=== PATIENT | female | born 1990 | race American Indian/Alaskan Native ===

== ENCOUNTER 2016-08-03 19:12 | Emergency (ER) | payer OTHER ==
[2016-08-03 19:12] VITALS: BMI 24.0
[2016-08-03 19:44] VITALS: TEMP 98.4; O2SAT 98
[2016-08-03] MEDS ORDERED: Sodium Chloride 0.9% 1,000 ML IV SCH (20:15)
--- NOTE | 2016-08-03 20:29 | ED PDOC ---
Arrival/HPI - General Chief Complaint: Female Genitourinary Time Seen by Provider: 08/03/16 19:58 Historian: Patient - History of Present Illness Narrative History of Present Illness (Text): 08/03/16 20:00 A 26 year old female presents to the emergency department complaining right suprapubic pain that began this afternoon. Patient reports pain was so severe she passed out. She denies any fever, nausea, vomiting, vaginal discharge, urinary symptoms, or other complaints at this time. PMD: Dr. Sandhu Time/Duration: 4-6 hours Symptom Onset: Sudden Symptom Course: Unchanged Quality: Other Severity Level: Severe Activities at Onset: Rest Context: Home Past Medical History - Provider Review Nursing Documentation Reviewed: Yes - Infectious Disease Hx of Infectious Diseases: None - Tetanus Immunization Tetanus Immunization: Unknown - Past Medical History Past Medical History: No Previous - Cardiac Hx Cardiac Disorders: No - Pulmonary Hx Respiratory Disorders: No - Neurological Hx Neurological Disorder: No - HEENT Hx HEENT Disorder: No - Renal Hx Renal Disorder: No - Endocrine/Metabolic Hx Endocrine Disorders: No - Hematological/Oncological Hx Blood Disorders: No - Integumentary Hx Dermatological Disorder: No - Musculoskeletal/Rheumatological Hx Musculoskeletal Disorders: No - Gastrointestinal Hx Gastrointestinal Disorders: No - Genitourinary/Gynecological Hx Genitourinary Disorders: No - Psychiatric Hx Psychophysiologic Disorder: No Hx Substance Use: No - Past Surgical History Past Surgical History: No Previous - Anesthesia Hx Anesthesia: No Hx Anesthesia Reactions: No Hx Malignant Hyperthermia: No - Suicidal Assessment Feels Threatened In Home Enviroment: No Family/Social History - Physician Review Nursing Documentation Reviewed: Yes Family/Social History: Unknown Family HX Smoking Status: Never Smoked Hx Alcohol Use: No Hx Substance Use: No Hx Substance Use Treatment: No Allergies/Home Meds Allergies/Adverse Reactions: Allergies No Known Allergies Allergy (Verified 04/28/15 19:11) Review of Systems - Physician Review All systems were reviewed & negative as marked: Yes - Review of Systems Constitutional: absent: Fevers Respiratory: absent: SOB Cardiovascular: Syncope. absent: Chest Pain Gastrointestinal: Abdominal Pain. absent: Diarrhea, Nausea, Vomiting Genitourinary Female: absent: Dysuria, Hematuria, Urine Output Changes, Vaginal Bleeding, Vaginal Discharge Physical Exam Vital Signs Reviewed: Yes Vital Signs Temp Pulse Resp BP Pulse Ox 08/03/16 19:36 98.4 F 65 18 118/62 98 Temperature: Afebrile Blood Pressure: Normal Pulse: Regular Respiratory Rate: Normal Appearance: Positive for: Well-Appearing, Non-Toxic, Comfortable Pain Distress: None Mental Status: Positive for: Alert and Oriented X 3 - Systems Exam Head: Present: Atraumatic, Normocephalic Pupils: Present: PERRL Extroacular Muscles: Present: EOMI Conjunctiva: Present: Normal Mouth: Present: Moist Mucous Membranes Neck: Present: Normal Range of Motion Respiratory/Chest: Present: Clear to Auscultation, Good Air Exchange. No: Respiratory Distress, Accessory Muscle Use Cardiovascular: Present: Regular Rate and Rhythm, Normal S1, S2. No: Murmurs Abdomen: Present: Normal Bowel Sounds. No: Tenderness, Distention, Peritoneal Signs Back: Present: Normal Inspection Upper Extremity: Present: Normal Inspection. No: Cyanosis, Edema Lower Extremity: Present: Normal Inspection. No: Edema Neurological: Present: GCS=15, CN II-XII Intact, Speech Normal Skin: Present: Warm, Dry, Normal Color. No: Rashes Psychiatric: Present: Alert, Oriented x 3, Normal Insight, Normal Concentration Medical Decision Making ED Course and Treatment: 08/03/16 20:00 Impression: A 26 year old female with right suprapubic pain. Differential Diagnosis include but are not limited to: ovarian cyst Plan: -- Transvaginal Ultrasound -- Labs -- Urinalysis -- Toradol and IV Fluids -- Reassess and disposition Prior Visits: Notes and results from previous visits were reviewed. The patient last presented to the emergency department on 04/28/15 for evaluation of nausea, vomiting, diarrhea and vaginal discharge. Progress Notes: 08/03/16 22:42 EXAM: US Pelvis Complete, Transabdominal FINDINGS: Uterus: Uterus is retroflexed. The uterus measures approximately 9 x 4.6 x 5.5 cm. Endometrium could not be identified Ovaries: Neither ovary could be identified Bladder: Bladder is incompletely distended. IMPRESSION: Limited by body habitus and incomplete bladder distention, retroflexed uterus EXAM: US Pelvis, Transvaginal FINDINGS: Uterus: Endometrium measures approximately 8 mm in width. Accurate measurements of the uterus could not be obtained. There is a 2.2 x 2.1 x 2.4 cm posterior fibroid. Right ovary: Right ovary measures approximately 2.7 x 2.1 x 1.9 cm. There are multiple small follicles. There is expected blood flow on Doppler imaging Left ovary: Left ovary measures approximately 3.1 x 1.6 x 3 cm. There are multiple follicles. There is expected blood flow on Doppler imaging Free fluid: There is no free fluid. Bladder: Bladder is empty IMPRESSION: Uterine fibroid; no torsion; multiple small follicles bilaterally, no cysts Dictated and Authenticated by: Donya Mendoza MD 08/03/16 22:43 On re-evaluation, patient feels better and is in no acute distress. I have discussed the results and plan with the patient, who expresses understanding. Patient in agreement with plan to be discharged home. Patient is stable for discharge. Patient was instructed to follow up with physician or return if symptoms worsen or new concerning symptoms arise. Re-evaluation Time: 22:23 Reassessment Condition: Re-examined, Improved - Lab Interpretations Lab Results: 08/03/16 20:21 08/03/16 20:21 Lab Results 08/03/16 21:59: Urine Color Yellow, Urine Appearance Cloudy, Urine pH 6.0, Ur Specific [place] >= 1.030, Urine Protein 100 H, Urine Glucose (UA) Negative, Urine Ketones Negative, Urine Blood Large H, Urine Nitrate Negative, Urine Bilirubin Negative, Urine Urobilinogen 0.2, Ur Leukocyte Esterase Negative, Urine RBC Pending, Urine WBC Pending 08/03/16 21:24: Urine HCG, Qual Negative 08/03/16 20:21: Sodium 138, Potassium 4.0, Chloride 106, Carbon Dioxide 23, Anion Gap 13, BUN 10, Creatinine 0.8, Est GFR ( Amer) > 60, Est GFR (Non- Af Amer) > 60, Random Glucose 96, Calcium 9.0, Total Bilirubin 0.6, AST 25, ALT 24, Alkaline Phosphatase 58, Total Protein 7.5, Albumin 4.1, Globulin 3.4, Albumin/Globulin Ratio 1.2 08/03/16 20:21: WBC 8.5, RBC 4.51, Hgb 12.1, Hct 35.6 L, MCV 78.9 L, MCH 26.8, MCHC 34.0, RDW 13.5, Plt Count 240, MPV 11.2 H, Gran % 70.7 H, Lymph % (Auto) 20.0 L, [place] % (Auto) 7.6 H, Eos % (Auto) 1.2 L, Baso % (Auto) 0.5, Gran # 6.03 , Lymph # 1.7, [place] # 0.7 H, Eos # 0.1, Baso # 0.04 I have reviewed the lab results: Yes - RAD Interpretation Radiology Orders: 08/03/16 20:08 TRANSVAGINAL [US] Stat Bacteriologist Dairy: Radiologist - Medication Orders Current Medication Orders: Sodium Chloride (Sodium Chloride 0.9%) 1,000 mls @ 80 mls/hr IV .[id number] GRACE Last Admin: 08/03/16 20:41 Dose: 80 mls/hr Valacyclovir HCl (Valtrex) 500 mg PO BID GRACE PRN Reason: Protocol Discontinued Medications Ketorolac Tromethamine (Toradol) 30 mg IVP ONCE ONE Stop: 08/03/16 20:10 Last Admin: 08/03/16 20:40 Dose: 30 mg - Scribe Statement The provider has reviewed the documentation as recorded by the Anatoliy Mckeon Provider Paulaibe Attestation: All medical record entries made by the Anatoliy were at my direction and personally dictated by me. I have reviewed the chart and agree that the record accurately reflects my personal performance of the history, physical exam, medical decision making, and the department course for this patient. I have also personally directed, reviewed, and agree with the discharge instructions and disposition. Disposition/Present on Arrival - Present on Arrival Any Indicators Present on Arrival: No History of DVT/PE: No History of Uncontrolled Diabetes: No Urinary Catheter: No History of Decub. Ulcer: No History Surgical Site Infection Following: None - Disposition Have Diagnosis and Disposition been Completed?: Yes Diagnosis: Pelvic pain, Herpes genitalia Disposition: HOME/ ROUTINE Disposition Time: 22:28 Patient Problems: Current Active Problems Problem Status Onset Herpes genitalia Acute Pelvic pain Acute Condition: GOOD Discharge Instructions (ExitCare): Genital Herpes Simplex (ED), Pelvic Pain (ED ) Prescriptions: valACYclovir [Valtrex] 500 mg PO BID #30 tab Referrals: Osman Sandhu MD [Primary Care Provider] - Follow up with primary
[2016-08-03 20:33] LABS: ADD MANUAL DIFF? NO
[2016-08-03 20:47] LABS: ALB/GLOB RATIO 1.2 (1.1-1.8); ALKALINE PHOSPHATASE 58 U/L (38-133); ALT/SGPT 24 U/L (7-56); AST/SGOT 25 U/L (15-39); BILIRUBIN,TOTAL 0.6 mg/dL (0.2-1.3); BLOOD UREA NITROGEN 10 mg/dL (7-21); CARBON DIOXIDE 23 mmol/L (21-33); CHLORIDE 106 mmol/L (95-110); GFR AFRICAN-AMERICAN > 60; GLUCOSE,RANDOM 96 mg/dL (70-110); SODIUM 138 mmol/L (132-148); TOTAL PROTEIN 7.5 g/dL (5.8-8.3)
[2016-08-03 20:48] LABS: BASO # 0.04 K/mm3 (0.0-2.0); BASO % 0.5 % (0.0-3.0); EOS # 0.1 (0.0-0.7); EOS % 1.2 % (1.5-5.0); GRAN # 6.03 (1.4-6.5); GRAN % 70.7 % (50.0-68.0); HEMATOCRIT 35.6 % (36.0-48.0); LYMPH # 1.7 (1.2-3.4); MEAN CELL VOLUME 78.9 fL (80.0-105.0); MEAN CORPUSCULAR HEMOGLOBIN 26.8 pg (25.0-35.0); MEAN PLATELET VOLUME 11.2 fl (7.0-11.0); MONO # 0.7 (0.1-0.6); MONO % 7.6 % (1.0-6.0); PLATELET COUNT 240 10^3/uL (120.0-450.0); RED CELL DISTRIBUTION WIDTH 13.5 % (11.5-14.5); WHITE BLOOD COUNT 8.5 10^3/ul (4.5-11.0)
--- NOTE | 2016-08-03 21:34 | US ---
EXAM: US Pelvis Complete, Transabdominal CLINICAL HISTORY: 26 years old, female; Pain; Pelvic pain; Additional info: R/O ovarian cyst TECHNIQUE: Real-time transabdominal pelvic ultrasound (complete) with image documentation. COMPARISON: There are no prior studies for comparison. FINDINGS: Uterus: Uterus is retroflexed. The uterus measures approximately 9 x 4.6 x 5.5 cm. Endometrium could not be identified Ovaries: Neither ovary could be identified Bladder: Bladder is incompletely distended. IMPRESSION: Limited by body habitus and incomplete bladder distention, retroflexed uterus EXAM: US Pelvis, Transvaginal CLINICAL HISTORY: 26 years old, female; Pain; Pelvic pain; Additional info: R/O ovarian cyst TECHNIQUE: Real-time transvaginal pelvic ultrasound (complete) with image documentation. Transvaginal imaging was used for better evaluation of the endometrium and adnexa. EXAM DATE/TIME: 08/03/2016 8:08 PM COMPARISON: There are no prior studies for comparison. FINDINGS: Uterus: Endometrium measures approximately 8 mm in width. Accurate measurements of the uterus could not be obtained. There is a 2.2 x 2.1 x 2.4 cm posterior fibroid. Right ovary: Right ovary measures approximately 2.7 x 2.1 x 1.9 cm. There are multiple small follicles. There is expected blood flow on Doppler imaging Left ovary: Left ovary measures approximately 3.1 x 1.6 x 3 cm. There are multiple follicles. There is expected blood flow on Doppler imaging Free fluid: There is no free fluid. Bladder: Bladder is empty IMPRESSION: Uterine fibroid; no torsion; multiple small follicles bilaterally, no cysts
[2016-08-03 22:09] LABS: URINE BILIRUBIN NEGATIVE (NEGATIVE); URINE BLOOD LARGE (NEGATIVE); URINE GLUCOSE (UA) NEGATIVE (NEGATIVE); URINE KETONE NEGATIVE (NEGATIVE); URINE LEUKOCYTE ESTERASE NEGATIVE Leu/uL (NEGATIVE); URINE PROTEIN 100 mg/dL (<30 mg/dL); URINE UROBILINOGEN 0.2 E.U./dL (<1 E.U./dL)
[2016-08-03 22:25] LABS: URINE APPEARANCE CLOUDY (CLEAR); URINE COLOR YELLOW (YELLOW)
[2016-08-03 22:54] VITALS: BP 139/60; PULSE 63; RESP 14
[2016-08-03 22:56] LABS: URINE BACTERIA SMALL (NEG); URINE RBC TNTC /hpf (0-2); URINE WBC TNTC /hpf (0-6)
== END 2016-08-03 22:55 | disposition home or self-care (01) ==
LOC: ED 19:12
DX: R10.2 Pelvic and perineal pain (principal); B00.9 Herpesviral infection, unspecified
CPT/HCPCS: 76830; 80053; 81001; 84703; 85025; 96374; 99283; J1885; J7040

== ENCOUNTER 2017-02-16 13:15 | Emergency (ER) | payer OTHER ==
[2017-02-16 13:15] VITALS: BMI 24.0
--- NOTE | 2017-02-16 13:32 | ED PDOC ---
Arrival/HPI - General Time Seen by Provider: 02/16/17 13:30 Historian: Patient - History of Present Illness Narrative History of Present Illness (Text): 02/16/17 13:31 26 y/o female, pmh including uterine fibroid/ovarian cyst, nkda, c/o LLQ abdominal pain x 2 days. Aching and cramping pain, no nausea or vomiting, no fever or chills, no vaginal bleeding or discharge, no night sweat, no palpitation, no rash, no weight loss or gain recently, no pain medication taken at home, no other medical or psychological complaints. Past Medical History - Provider Review Nursing Documentation Reviewed: Yes - Infectious Disease Hx of Infectious Diseases: None - Tetanus Immunization Tetanus Immunization: Unknown - Past Medical History Past Medical History: No Previous - Cardiac Hx Cardiac Disorders: No - Pulmonary Hx Respiratory Disorders: No - Neurological Hx Neurological Disorder: No - HEENT Hx HEENT Disorder: No - Renal Hx Renal Disorder: No - Endocrine/Metabolic Hx Endocrine Disorders: No - Hematological/Oncological Hx Blood Disorders: No - Integumentary Hx Dermatological Disorder: No - Musculoskeletal/Rheumatological Hx Musculoskeletal Disorders: No - Gastrointestinal Hx Gastrointestinal Disorders: No - Genitourinary/Gynecological Hx Genitourinary Disorders: No - Psychiatric Hx Psychophysiologic Disorder: No Hx Substance Use: No - Past Surgical History Past Surgical History: No Previous - Anesthesia Hx Anesthesia: No Hx Anesthesia Reactions: No Hx Malignant Hyperthermia: No - Suicidal Assessment Feels Threatened In Home Enviroment: No Family/Social History - Physician Review Nursing Documentation Reviewed: Yes Family/Social History: Unknown Family HX Smoking Status: Never Smoked Hx Alcohol Use: No Hx Substance Use: No Hx Substance Use Treatment: No Allergies/Home Meds Allergies/Adverse Reactions: Allergies No Known Allergies Allergy (Verified 02/16/17 13:49) Review of Systems - Review of Systems Constitutional: absent: Fatigue, Fevers Eyes: absent: Vision Changes ENT: absent: Hearing Changes Respiratory: absent: SOB, Cough Cardiovascular: absent: Chest Pain Gastrointestinal: Abdominal Pain. absent: Diarrhea, Nausea, Vomiting Musculoskeletal: absent: Arthralgias, Back Pain Skin: absent: Rash, Pruritis Neurological: absent: Headache, Dizziness Psychiatric: absent: Anxiety, Depression Physical Exam Vital Signs Reviewed: Yes Vital Signs Temp Pulse Resp BP Pulse Ox 02/16/17 13:50 98.6 F 69 16 112/77 97 Temperature: Afebrile Blood Pressure: Normal Pulse: Regular Respiratory Rate: Normal Appearance: Positive for: Well-Appearing, Non-Toxic, Comfortable Pain Distress: Mild Mental Status: Positive for: Alert and Oriented X 3 - Systems Exam Head: Present: Atraumatic, Normocephalic Pupils: Present: PERRL Extroacular Muscles: Present: EOMI Conjunctiva: Present: Normal Mouth: Present: Moist Mucous Membranes Neck: Present: Normal Range of Motion Respiratory/Chest: Present: Clear to Auscultation, Good Air Exchange. No: Respiratory Distress, Accessory Muscle Use Cardiovascular: Present: Regular Rate and Rhythm, Normal S1, S2. No: Murmurs Abdomen: Present: Normal Bowel Sounds. No: Tenderness, Distention, Peritoneal Signs, Rebound, Guarding Genitourinary/Pelvic Exam: Present: Normal External Genitalia, Cervical os Closed, Other (Female grain receiver: ER Staff Emir Perez). No: Vaginal Discharge, Vaginal Bleeding, Vaginal Lesions, Adenexal Tenderness, Adenexal Mass, Cervical Motion Tendernes, Odor Back: Present: Normal Inspection. No: CVA Tenderness Upper Extremity: Present: Normal Inspection. No: Cyanosis, Edema Lower Extremity: Present: Normal Inspection. No: Edema Neurological: Present: GCS=15, Speech Normal, Motor Func Grossly Intact, Gait Normal, Memory Normal Skin: Present: Warm, Dry, Normal Color. No: Rashes Psychiatric: Present: Alert, Oriented x 3, Normal Insight, Normal Concentration Medical Decision Making ED Course and Treatment: 02/16/17 14:24 -labs/ua -Transvaginal sonogram -Tylenol -observe and reassess 02/16/17 16:32 -Urine hcg is positive, -Labs are non-significant -Beta hcg 3219, approx. 5-6 weeks . -Sonogram show Presumed early intrauterine gestation based on well-formed gestational sac. No pole or yolk sac identified. -Pt. has no vaginal bleeding or hemorrhaging noted. -Pain resolved. -I discussed with the patient about wide broadened differential including ectopic vs. threatened vs. miscarriage, pt. verbally expressed understanding, advised to repeat beta hcg in 2 days and repeat sonogram as needed. -Discharge home with tylenol, bed rest, follow up with your own pmd and obgyn within 2 days, your beta hcg today is 3219 and you need to have it repeat in 2 days with possible sonogram, return to the ER for any new or worsening signs or symptoms. - Lab Interpretations Lab Results: 02/16/17 14:35 02/16/17 14:35 Lab Results 02/16/17 15:27: Blood Type B POSITIVE, Antibody Screen Negative, BBK History Checked Patient has bt 02/16/17 14:35: Beta HCG, Quant 3219.00 H 02/16/17 14:35: WBC 8.4, RBC 4.96, Hgb 13.0, Hct 38.5, MCV 77.6 L, MCH 26.2, MCHC 33.8, RDW 13.2, Plt Count 251, MPV 11.0, Gran % 65.6, Lymph % (Auto) 25.9, [place] % (Auto) 6.7 H, Eos % (Auto) 1.1 L, Baso % (Auto) 0.7, Gran # 5.53, Lymph # 2.2, [place] # 0.6, Eos # 0.1, Baso # 0.06 02/16/17 14:35: Sodium 137, Potassium 3.9, Chloride 106, Carbon Dioxide 21, Anion Gap 14, BUN 9, Creatinine 0.6 L, Est GFR ( Amer) > 60, Est GFR (Non -Af Amer) > 60, Random Glucose 105, Calcium 8.9, Total Bilirubin 0.6, AST 23, ALT 21, Alkaline Phosphatase 47, Total Protein 7.9, Albumin 4.3, Globulin 3.6, Albumin/Globulin Ratio 1.2 02/16/17 14:20: Urine Color Yellow, Urine Appearance Clear, Urine pH 6.0, Ur Specific [place] >= 1.030, Urine Protein Trace H, Urine Glucose (UA) Negative, Urine Ketones Negative, Urine Blood Negative, Urine Nitrate Negative, Urine Bilirubin Negative, Urine Urobilinogen 0.2, Ur Leukocyte Esterase Negative, Urine RBC 0 - 2, Urine WBC 0 - 2, Ur Epithelial Cells 6 - 8, Amorphous Sediment Few, Urine Bacteria Many, Urine Other Fiber - RAD Interpretation Radiology Orders: 02/16/17 14:26 OB TRANSVAGINAL [US] Stat COMPARISON: None available. TECHNIQUE: Standard protocol for this study/examination. FINDINGS: LMP: 12/27/2016 Prior examinations from the current : None TECHNIQUE: Real-time 2D imaging, duplex and color Doppler. FINDINGS: No pole identified. Gestational age out of range based on gestational sac measurement 0.57 cm Gestational age derived from LMP: 7 weeks 2 days JOE based on LMP: 10/03/2017 JOE based on biometry: Cannot be ascertained based in the absence of a reliable / known LMP Gestational concordance documented Yolk sac not identified Uterus: Unremarkable. No Cervical abnormalities: Negative examination for cervical dilatation or effacement. Closed cervix measuring cm Subchorionic hemorrhage: None UTERUS: 5.5 x 7.0 x 9.1 cm. Low lying posterior fibroid 2.1 x 2.7 cm. Additional posterior submucosal fibroid 0.5 x 0.8 cm ADNEXA: Right: 2.9 x 4.2 x 3.5 cm. Normal Doppler arterial waveform documented. Left: 1.9 x 3.0 x 3.1 cm. Normal Doppler arterial waveform documented Fluid in the cul-de-sac: None IMPRESSION: Presumed early intrauterine gestation based on well-formed gestational sac. No pole or yolk sac identified. Clerical Adviser: Radiologist - Medication Orders Current Medication Orders: Discontinued Medications Acetaminophen (Tylenol 325mg Tab) 650 mg PO STAT STA Stop: 02/16/17 14:28 - PA / ADMINISTRATIVE REPRESENTATIVE / Resident Statement MD/DO has reviewed & agrees with the documentation as recorded. Disposition/Present on Arrival - Present on Arrival Any Indicators Present on Arrival: No History of DVT/PE: No History of Uncontrolled Diabetes: No Urinary Catheter: No History of Decub. Ulcer: No History Surgical Site Infection Following: None - Disposition Have Diagnosis and Disposition been Completed?: Yes Diagnosis: , Pelvic pain Disposition: HOME/ ROUTINE Disposition Time: 16:08 Patient Plan: Discharge Patient Problems: Current Active Problems Problem Status Onset Pelvic pain Acute Acute Condition: GOOD Additional Instructions: -Discharge home with tylenol, bed rest, follow up with your own pmd and obgyn within 2 days, your beta hcg today is 3219 and you need to have it repeat in 2 days with possible sonogram, return to the ER for any new or worsening signs or symptoms. Prescriptions: Acetaminophen [Tylenol 325mg tab] 2 tab PO QID PRN #30 tab PRN Reason: Other Referrals: Solo Chen MD [Primary Care Provider] - Follow up with primary Francisco Prince MD [Staff Provider] - Follow up with primary Forms: WORK NOTE
[2017-02-16 13:56] VITALS: BP 112/77; PULSE 69; RESP 16; TEMP 98.6; O2SAT 97
[2017-02-16 14:37] LABS: URINE BILIRUBIN NEGATIVE (NEGATIVE); URINE BLOOD NEGATIVE (NEGATIVE); URINE GLUCOSE (UA) NEGATIVE (NEGATIVE); URINE KETONE NEGATIVE (NEGATIVE); URINE LEUKOCYTE ESTERASE NEGATIVE Leu/uL (NEGATIVE); URINE PROTEIN TRACE mg/dL (<30 mg/dL); URINE UROBILINOGEN 0.2 E.U./dL (<1 E.U./dL)
[2017-02-16 14:50] LABS: URINE APPEARANCE CLEAR (CLEAR); URINE COLOR YELLOW (YELLOW)
[2017-02-16 14:51] LABS: BASO # 0.06 K/mm3 (0.0-2.0); BASO % 0.7 % (0.0-3.0); EOS # 0.1 (0.0-0.7); EOS % 1.1 % (1.5-5.0); GRAN # 5.53 (1.4-6.5); GRAN % 65.6 % (50.0-68.0); HEMATOCRIT 38.5 % (36.0-48.0); LYMPH # 2.2 (1.2-3.4); LYMPH % 25.9 % (22.0-35.0); MEAN CELL VOLUME 77.6 fl (80.0-105.0); MEAN CORPUSCULAR HEMOGLOBIN 26.2 pg (25.0-35.0); MEAN CORPUSCULAR HGB CONC 33.8 g/dl (31.0-37.0); MONO # 0.6 (0.1-0.6); MONO % 6.7 % (1.0-6.0); RED CELL DISTRIBUTION WIDTH 13.2 % (11.5-14.5); WHITE BLOOD COUNT 8.4 10^3/ul (4.5-11.0)
[2017-02-16 14:56] LABS: URINE AMORPHOUS SEDIMENT FEW; URINE BACTERIA MANY (NEG); URINE RBC 0 - 2 /hpf (0-2); URINE WBC 0 - 2 /hpf (0-6)
[2017-02-16 15:02] LABS: ALB/GLOB RATIO 1.2 (1.1-1.8); BILIRUBIN,TOTAL 0.6 mg/dL (0.2-1.3); CALCIUM 8.9 mg/dL (8.4-10.5); GFR AFRICAN-AMERICAN > 60; GLUCOSE,RANDOM 105 mg/dL (70-110); TOTAL PROTEIN 7.9 g/dL (5.8-8.3)
--- NOTE | 2017-02-16 15:31 | US ---
PROCEDURE: First trimester ultrasound HISTORY: Positive test. Presenting with left pelvic pain COMPARISON: None available. TECHNIQUE: Standard protocol for this study/examination. FINDINGS: LMP: 12/27/2016 Prior examinations from the current : None TECHNIQUE: Real-time 2D imaging, duplex and color Doppler. FINDINGS: No pole identified. Gestational age out of range based on gestational sac measurement 0.57 cm Gestational age derived from LMP: 7 weeks 2 days JOE based on LMP: 10/03/2017 JOE based on biometry: Cannot be ascertained based in the absence of a reliable/ known LMP Gestational concordance documented Yolk sac not identified Uterus: Unremarkable. No Cervical abnormalities: Negative examination for cervical dilatation or effacement. Closed cervix measuring cm Subchorionic hemorrhage: None UTERUS: 5.5 x 7.0 x 9.1 cm. Low lying posterior fibroid 2.1 x 2.7 cm. Additional posterior submucosal fibroid 0.5 x 0.8 cm ADNEXA: Right: 2.9 x 4.2 x 3.5 cm. Normal Doppler arterial waveform documented. Left: 1.9 x 3.0 x 3.1 cm. Normal Doppler arterial waveform documented Fluid in the cul-de-sac: None IMPRESSION: Presumed early intrauterine gestation based on well-formed gestational sac. No pole or yolk sac identified.
[2017-02-16 16:05] LABS: ALKALINE PHOSPHATASE 47 U/L (38-126); ALT/SGPT 21 U/L (7-56); AST/SGOT 23 U/L (14-36); BLOOD UREA NITROGEN 9 mg/dL (7-21); CARBON DIOXIDE 21 mmol/L (21-33); CHLORIDE 106 mmol/L (98-107); POTASSIUM 3.9 mmol/L (3.6-5.0); SODIUM 137 mmol/L (132-148)
== END 2017-02-16 16:42 | disposition home or self-care (01) ==
LOC: ED 13:15
DX: O26.899 Other specified pregnancy related conditions, unspecified trimester (principal); R10.2 Pelvic and perineal pain

== ENCOUNTER 2017-02-23 10:43 | Emergency (ER) | payer OTHER ==
[2017-02-23 10:56] VITALS: BMI 29.2
[2017-02-23] MEDS ORDERED: Sodium Chloride 0.9% 1,000 ML IV STA (11:08)
--- NOTE | 2017-02-23 11:11 | ED PDOC ---
Arrival/HPI - General Chief Complaint: Female Genitourinary Time Seen by Provider: 02/23/17 11:03 Historian: Patient - History of Present Illness Narrative History of Present Illness (Text): 02/23/17 11:09 26yo female with no PMhx who present complaining of vaginal bleeding and abdominal cramping. She is . states her LMP was end of November into December. She was on the phone with a new OB ,when she started bleeding and having cramps this morning. She denies urinary symptoms, nausea, vomiting, diarrhea, dizziness, chest pain, SOB, any other complaint. Past Medical History - Provider Review Nursing Documentation Reviewed: Yes - Infectious Disease Hx of Infectious Diseases: None - Tetanus Immunization Tetanus Immunization: Unknown - Past Medical History Past Medical History: No Previous - Cardiac Hx Cardiac Disorders: No - Pulmonary Hx Respiratory Disorders: No - Neurological Hx Neurological Disorder: No - HEENT Hx HEENT Disorder: No - Renal Hx Renal Disorder: No - Endocrine/Metabolic Hx Endocrine Disorders: No - Hematological/Oncological Hx Blood Disorders: No - Integumentary Hx Dermatological Disorder: No - Musculoskeletal/Rheumatological Hx Musculoskeletal Disorders: No - Gastrointestinal Hx Gastrointestinal Disorders: No - Genitourinary/Gynecological Hx Genitourinary Disorders: No - Psychiatric Hx Psychophysiologic Disorder: No Hx Substance Use: No - Past Surgical History Past Surgical History: No Previous - Anesthesia Hx Anesthesia: No Hx Anesthesia Reactions: No Hx Malignant Hyperthermia: No - Suicidal Assessment Feels Threatened In Home Enviroment: No Family/Social History - Physician Review Nursing Documentation Reviewed: Yes Family/Social History: Unknown Family HX Smoking Status: Never Smoked Hx Alcohol Use: No Hx Substance Use: No Hx Substance Use Treatment: No Allergies/Home Meds Allergies/Adverse Reactions: Allergies No Known Allergies Allergy (Verified 02/23/17 11:00) Home Medications: Home Meds Medication Instructions Recorded Confirmed Multivit/Folic Acid/I 1 tab PO DAILY 02/23/17 02/23/17 [ Plus] Review of Systems - Physician Review All systems were reviewed & negative as marked: Yes - Review of Systems Constitutional: Normal Eyes: Normal ENT: Normal Respiratory: Normal Cardiovascular: Normal Gastrointestinal: Abdominal Pain. absent: Constipation, Diarrhea, Nausea, Vomiting, Hematochezia, Hematemesis Genitourinary Female: Vaginal Bleeding. absent: Dysuria, Frequency, Hematuria Musculoskeletal: Normal Skin: Normal Neurological: Normal Endocrine: Normal Hemo/Lymphatic: Normal Psychiatric: Normal Physical Exam Vital Signs Reviewed: Yes Vital Signs Temp Pulse Resp BP Pulse Ox 02/23/17 14:12 100/70 02/23/17 13:00 79 18 105/68 99 02/23/17 11:09 98.3 F 86 18 103/64 99 Temperature: Afebrile Blood Pressure: Normal Pulse: Regular Respiratory Rate: Normal Appearance: Positive for: Well-Appearing, Non-Toxic, Comfortable Pain Distress: None Mental Status: Positive for: Alert and Oriented X 3 - Systems Exam Head: Present: Atraumatic, Normocephalic Pupils: Present: PERRL Extroacular Muscles: Present: EOMI Conjunctiva: Present: Normal Mouth: Present: Moist Mucous Membranes Neck: Present: Normal Range of Motion Respiratory/Chest: Present: Clear to Auscultation, Good Air Exchange. No: Respiratory Distress, Accessory Muscle Use Cardiovascular: Present: Regular Rate and Rhythm, Normal S1, S2. No: Murmurs Abdomen: Present: Normal Bowel Sounds. No: Tenderness, Distention, Peritoneal Signs Genitourinary/Pelvic Exam: Present: Vaginal Bleeding (Small blood pooling noted in vault. Cervical OS closed) Back: Present: Normal Inspection Upper Extremity: Present: Normal Inspection. No: Cyanosis, Edema Lower Extremity: Present: Normal Inspection. No: Edema Neurological: Present: GCS=15, CN II-XII Intact, Speech Normal Skin: Present: Warm, Dry, Normal Color. No: Rashes Psychiatric: Present: Alert, Oriented x 3, Normal Insight, Normal Concentration Medical Decision Making ED Course and Treatment: 02/23/17 21:18 Pt in ED for stated history. Her lab was compared from her visit on 02/16/17 and her beta is elevated form 3374.00 to 07198.00 She have UTI and treated with macrobid. Transvaginal Us IMPRESSION: 1. Single intrauterine gestational sac with mean gestational age corresponding to 5 weeks and 4 days. Yolk sac is visualized however pole is not identified on the current examination which may be related to early gestation. Clinical and imaging follow-up is recommended to confirm viability. 2. Fibroid uterus, the largest posterior wall lower uterine segment intramural fibroid measures 3.3 cm. Result was DW the pt. She have OB and was advised to f/u with her OB or return to ED in 2days for a repeat beta. Rx of Macrobid given. - Lab Interpretations Lab Results: 02/23/17 12:00 02/23/17 12:00 Lab Results 02/23/17 12:00: Blood Type B POSITIVE, Antibody Screen Negative, BBK History Checked Patient has bt 02/23/17 12:00: Urine Color Light red, Urine Appearance Cloudy, Urine pH 5.5, Ur Specific [place] >= 1.030, Urine Protein 100 H, Urine Glucose (UA) Negative, Urine Ketones Trace H, Urine Blood Large H, Urine Nitrate Positive H, Urine Bilirubin Small H, Urine Urobilinogen 0.2, Ur Leukocyte Esterase Small H, Urine RBC Tntc, Urine WBC 0 - 2, Ur Epithelial Cells 1 - 3, Urine Bacteria Few, Urine HCG, Qual Positive 02/23/17 12:00: Beta HCG, Quant 17187.00 H 02/23/17 12:00: Sodium 136, Potassium 3.6, Chloride 103, Carbon Dioxide 20 L, Anion Gap 16, BUN 6 L, Creatinine 0.6 L, Est GFR ( Amer) > 60, Est GFR ( Non-Af Amer) > 60, Random Glucose 91, Calcium 8.9, Total Bilirubin 0.3, AST 23, ALT 26, Alkaline Phosphatase 47, Total Protein 7.4, Albumin 4.2, Globulin 3.3, Albumin/Globulin Ratio 1.3 02/23/17 12:00: PT 11.2, INR 1.02, APTT 26.1 02/23/17 12:00: WBC 9.8, RBC 4.60, Hgb 12.2, Hct 35.7 L, MCV 77.6 L, MCH 26.5, MCHC 34.2, RDW 13.4, Plt Count 219, MPV 10.9, Gran % 65.6, Lymph % (Auto) 25.1, [place] % (Auto) 7.7 H, Eos % (Auto) 1.1 L, Baso % (Auto) 0.5, Gran # 6.42, Lymph # 2.5, [place] # 0.8 H, Eos # 0.1, Baso # 0.05 - RAD Interpretation Radiology Orders: 02/23/17 11:07 OB TRANSVAGINAL [US] Stat - Medication Orders Current Medication Orders: Discontinued Medications Sodium Chloride (Sodium Chloride 0.9%) 1,000 mls @ 999 mls/hr IV .Q1H1M STA Stop: 02/23/17 12:08 Nitrofurantoin Macrocrystals (Macrobid) 100 mg PO ONCE STA Stop: 02/23/17 13:44 Disposition/Present on Arrival - Present on Arrival Any Indicators Present on Arrival: No History of DVT/PE: No History of Uncontrolled Diabetes: No Urinary Catheter: No History of Decub. Ulcer: No History Surgical Site Infection Following: None - Disposition Have Diagnosis and Disposition been Completed?: Yes Diagnosis: Threatened , UTI (urinary tract infection) Disposition: HOME/ ROUTINE Disposition Time: 13:50 Patient Plan: Discharge Condition: STABLE Discharge Instructions (ExitCare): Threatened Miscarriage (ED) Additional Instructions: Follow up with your OB Return to ED for any new or worsening symptoms Prescriptions: Nitrofurantoin Macrocrystals [Macrobid] 100 mg PO BID #14 cap Referrals: Osman Sandhu MD [Primary Care Provider] - Follow up with primary Francisco Prince MD [Staff Provider] - Follow up with primary Forms: [employer] (Welsh)
[2017-02-23 11:13] VITALS: RESP 18; TEMP 98.3; O2SAT 99
[2017-02-23 12:14] LABS: BASO # 0.05 K/mm3 (0.0-2.0); BASO % 0.5 % (0.0-3.0); EOS # 0.1 (0.0-0.7); EOS % 1.1 % (1.5-5.0); GRAN # 6.42 (1.4-6.5); GRAN % 65.6 % (50.0-68.0); HEMOGLOBIN 12.2 g/dL (12.0-16.0); LYMPH # 2.5 (1.2-3.4); LYMPH % 25.1 % (22.0-35.0); MEAN CELL VOLUME 77.6 fl (80.0-105.0); MEAN CORPUSCULAR HEMOGLOBIN 26.5 pg (25.0-35.0); MEAN CORPUSCULAR HGB CONC 34.2 g/dl (31.0-37.0); MEAN PLATELET VOLUME 10.9 fl (7.0-11.0); MONO # 0.8 (0.1-0.6); MONO % 7.7 % (1.0-6.0); RBC 4.6 10^6/uL (3.5-6.1); RED CELL DISTRIBUTION WIDTH 13.4 % (11.5-14.5); WHITE BLOOD COUNT 9.8 10^3/ul (4.5-11.0)
[2017-02-23 12:15] LABS: PH,URINE 5.5 (4.7-8.0); URINE BILIRUBIN SMALL (NEGATIVE); URINE BLOOD LARGE (NEGATIVE); URINE GLUCOSE (UA) NEGATIVE (NEGATIVE); URINE LEUKOCYTE ESTERASE SMALL Leu/uL (NEGATIVE); URINE NITRATE POSITIVE (NEGATIVE); URINE PROTEIN 100 mg/dL (<30 mg/dL); URINE UROBILINOGEN 0.2 E.U./dL (<1 E.U./dL)
[2017-02-23 12:16] LABS: HCG,QUALITATIVE URINE POSITIVE (NEGATIVE); URINE APPEARANCE CLOUDY (CLEAR); URINE COLOR LIGHT RED (YELLOW)
[2017-02-23 12:23] LABS: URINE BACTERIA FEW (NEG); URINE RBC TNTC /hpf (0-2); URINE WBC 0 - 2 /hpf (0-6)
[2017-02-23 12:24] LABS: INR 1.02 (0.93-1.08); PARTIAL THROMBOPLASTIN TIME 26.1 Seconds (25.1-36.5); PROTHROMBIN TIME 11.2 SECONDS (9.4-12.5)
[2017-02-23 12:43] LABS: ALB/GLOB RATIO 1.3 (1.1-1.8); ALBUMIN 4.2 g/dL (3.0-4.8); ALT/SGPT 26 U/L (7-56); AST/SGOT 23 U/L (14-36); BLOOD UREA NITROGEN 6 mg/dL (7-21); CALCIUM 8.9 mg/dL (8.4-10.5); GFR AFRICAN-AMERICAN > 60; GFR NON-AFRICAN AMERICAN > 60
[2017-02-23 13:08] VITALS: PULSE 79
--- NOTE | 2017-02-23 13:22 | US ---
PROCEDURE: OB Pelvic Ultrasound HISTORY: /bleeding COMPARISON: None available. TECHNIQUE: Transvaginal pelvic ultrasound was performed. FINDINGS: UTERUS: Single intrauterine gestation. Yolk sac is visualized. pole is not visualized on the current examination. Gestational sac diameter equivalent to 1.30 cm corresponding to 5 weeks and 4 days gestation age (Ultrasound estimated): 5 weeks and 4 days Date of delivery (Ultrasound estimated) : 10/22/2017 [place]-gestational hemorrhage: None. Measures 8.6 x 5.8 x 7.2 cm. Retroverted and normal in size. There is a 3.3 x 2.6 x 3.1 cm intramural fibroid in the posterior lower uterine segment, a 1.1 x 1.0 x 1.3 cm intramural fibroid in the anterior lower uterine segment, a 1.1 x 0.7 x 1.0 cm subserosal posterior fundal fibroid and a 2.0 x 2.3 x 2.0 cm subserosal fundal fibroid. . CERVIX: Long and closed. No cervical abnormality seen. RIGHT OVARY: Measures 4.6 x 3.0 x 3.7 cm. No mass. Normal flow. LEFT OVARY: Measures 3.6 x 2.3 x 3.0 cm. No mass. Normal flow. FREE FLUID: There is small amount of free fluid in the pelvis. OTHER FINDINGS: IMPRESSION: 1. Single intrauterine gestational sac with mean gestational age corresponding to 5 weeks and 4 days. Yolk sac is visualized however pole is not identified on the current examination which may be related to early gestation. Clinical and imaging follow-up is recommended to confirm viability. 2. Fibroid uterus, the largest posterior wall lower uterine segment intramural fibroid measures 3.3 cm.
[2017-02-23 14:14] VITALS: BP 100/70
== END 2017-02-23 14:13 | disposition home or self-care (01) ==
LOC: ED 10:43
DX: O20.0 Threatened abortion (principal); N39.0 Urinary tract infection, site not specified